=== PATIENT | female | born 1980 | race Caucasian/White ===

== ENCOUNTER 2025-07-06 13:59 | Outpatient (REF) | payer MEDICAID, SELFPAY ==
[2025-07-06 21:42] LABS: Cholesterol 196 mg/dL (<200); HDL Cholesterol 68 mg/dL (>40)
[2025-07-06 21:43] LABS: TSH (W/Ref FT4) 1.38 uIU/mL (0.55-4.78)
== END 2025-07-06 14:00 | disposition home or self-care (01) ==
LOC: NCHCN 13:59
PROVIDERS: Visit Provider Nurse Practitioner Family
DX: Z13.220 Encounter for screening for lipoid disorders (principal); R61 Generalized hyperhidrosis
CPT/HCPCS: 80061; 84443